=== PATIENT | female | born 1940 | race Caucasian/White ===

== ENCOUNTER → 2020-01-06 12:35 | Outpatient (CLI) | payer MEDICARE, SELFPAY ==
--- NOTE | 2020-01-06 12:49 | DI.US.S_ITS ---
PROCEDURE: US PERIPH VENOUS LOW EXTREM BI INDICATIONS: LOCALIZED EDEMA TECHNIQUE: Real-time imaging, as well as color and pulse Doppler interrogation, were performed of the deep veins of both legs from the inguinal ligament to the popliteal fossa. COMPARISON: None. FINDINGS: Right: The common femoral, femoral and popliteal veins are normally compressible, and free of intraluminal thrombus. Color and pulse Doppler demonstrate normal phasic intravascular flow. There is normal augmentation response to distal compression maneuver. Left: The common femoral, femoral and popliteal veins are normally compressible, and free of intraluminal thrombus. Color and pulse Doppler demonstrate normal phasic intravascular flow. There is normal augmentation response to distal compression maneuver. IMPRESSION: No DVT in the right or left lower extremity. Dictated by: Lizett Pruitt M.D. on 01/06/2020 at 14:37 Approved by: Lizett Pruitt M.D. on 01/06/2020 at 14:37
== END ==
PROVIDERS: Referring Provider Internal Medicine Medical Oncology; Visit Provider Internal Medicine Medical Oncology
DX: R60.0 Localized edema (principal); C34.12 Malignant neoplasm of upper lobe, left bronchus or lung; D47.3 Essential (hemorrhagic) thrombocythemia; R00.0 Tachycardia, unspecified
CPT/HCPCS: 93970